=== PATIENT | female | born 1995 | race American Indian/Alaskan Native ===

== ENCOUNTER 2019-10-26 20:40 | Emergency (ER) | payer OTHER ==
[2019-10-26 20:59] VITALS: BP 145/98
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
== END 2019-10-26 21:00 | disposition left against medical advice (07) ==
LOC: ED 20:40
DX: S39.012A Strain of muscle, fascia and tendon of lower back, initial encounter (principal); M25.551 Pain in right hip; V89.2XXA Person injured in unspecified motor-vehicle accident, traffic, initial encounter; Y93.89 Activity, other specified; Y92.410 Unspecified street and highway as the place of occurrence of the external cause; Y99.8 Other external cause status
CPT/HCPCS: 99281